=== PATIENT | male | born 1955 | race Caucasian/White ===

== ENCOUNTER 2022-12-25 09:46 | Emergency (ER) | payer MEDICARE ==
[~2022-12-25] VITALS: Ht 185.4 cm; Wt 109.8 kg
[2022-12-25 09:56] VITALS: BP 186/89
[2022-12-25 10:01] VITALS: BP 143/115
[2022-12-25 10:30] VITALS: BP 142/69
[2022-12-25] MEDS ORDERED: PREDNISONE50 MG PO (10:38)
[2022-12-25] MEDS ORDERED: ZPAK PO (10:38)
[2022-12-25] MEDS ORDERED: TRAMADOL HYDROC50 M1 PO (11:22)
[2022-12-25 11:27] VITALS: BP 142/69
== END 2022-12-25 11:33 | disposition home or self-care (01) ==
LOC: ED 09:46
DX: M25.562 Pain in left knee (principal); M25.552 Pain in left hip; J44.9 Chronic obstructive pulmonary disease, unspecified